=== PATIENT | female | born 1985 | race American Indian/Alaskan Native ===

== ENCOUNTER 2018-11-22 10:49 | Outpatient (CLI) | payer OTHER ==
[2018-11-22 12:15] LABS: Bacteria,Urine 4+ /HPF (Negative); Bilirubin,Urine NEG (Negative); Blood,Urine SM (Negative); Color,Urine Amber (Yellow); Mucus,Urine 2+ /HPF
[2018-11-22 12:16] LABS: WBC,Urine > 182.0 /HPF (0.0-6.0)
--- NOTE | 2018-11-22 13:44 | Ultrasound Report ---
PROCEDURE: US OB >= 14 WEEKS FETUS TECHNIQUE: Obstetrical ultrasound performed. HISTORY: no care COMPARISON: None FINDINGS: presentation: Variable Placental location: Posterior. Placenta previa?No. Abruption? No Amniotic fluid volume:Normal. heart rate: 159 measurements: BPD: 4.4 cm-19 weeks 2 days HC: 17.3 cm-19 weeks 6 days AC: 15.3 cm-20 weeks 3 days FL: 20 weeks 2 days Average age by ultrasound: 20 weeks 0 days with corresponding ERICA of 04/11/2019 Gestational age by LMP of 06/20/2018 is 21 weeks 5 days with ERICA of 03/30/2019 Estimated weight: 347 g Survey of anatomy: The cerebral ventricles, cerebellum/cisterna magna, spine, stomach, bladder, cord insertion, three-vessel cord, kidneys demonstrate no significant abnormality. Four-chamber hear t visualization/documentation limited by spine up position. Normal cervical length measuring 4.8 cm. IMPRESSION: There is a single live intrauterine of approximately 20 weeks 0 days gestational age accord ing to today's measurements. This corresponds to ERICA of 04/11/2019. No significant abnormality seen. Four-chamber heart documentation is limited due to spine down positi on and fetus. This document is electronically signed by Chikis Hilliard MD., Nov 22 2018 01:42:31 PM ET
[2018-11-22 14:27] VITALS: BP 109/59
== END 2018-11-22 14:45 | disposition home or self-care (01) ==
LOC: TRG 10:49
PROVIDERS: ATTEND Obstetrics & Gynecology
DX: O47.02 False labor before 37 completed weeks of gestation, second trimester (principal); Z3A.21 21 weeks gestation of pregnancy
CPT/HCPCS: 76805; 81001